=== PATIENT | female | born 1980 | race Caucasian/White ===

== ENCOUNTER 2018-12-03 11:02 | Emergency (ER) | payer MEDICAID ==
[2018-12-03] MEDS: KETOROLAC 60 MG INJ IM (12:11)
== END 2018-12-03 12:31 | disposition home or self-care (01) ==
LOC: FTE 11:02
DX: M77.9 Enthesopathy, unspecified (principal)
CPT/HCPCS: 81025; 96372; 99284-25

== ENCOUNTER 2019-04-19 18:24 | Emergency (ER) | payer MEDICAID ==
[2019-04-19] MEDS: IBUPROFEN 600 MG TAB PO (20:59)
== END 2019-04-19 21:55 | disposition home or self-care (01) ==
LOC: FTE 18:24
DX: R07.81 Pleurodynia (principal)
CPT/HCPCS: 71100; 99283-25

== ENCOUNTER 2019-06-26 13:06 | Emergency (ER) | payer MEDICAID | END 2019-06-26 13:34 | disposition home or self-care (01) | LOC: E/R 13:06 | DX: J45.21 Mild intermittent asthma with (acute) exacerbation (principal) | CPT/HCPCS: 99282; Z7502 ==